=== PATIENT | female | born 1980 | race African-American/Black ===

== ENCOUNTER 2017-07-16 09:36 | Emergency (ER) | payer BC, MEDICAID, OTHER ==
--- NOTE | 2017-07-16 10:03 | ER Document Report ---
HPI - HPI Patient complains to provider of: dental pain Onset: Other - Several days Onset/Duration: Gradual Quality of pain: Achy, Throbbing Pain Level: Denies Context: 36-year-old female complaining of dental pain and swelling to the top right for several days. She went to an urgent care this morning the center to the emergency room because they wanted to make sure it was not into the soft tissue. Temperature was 100 and a pulse rate of 118 with blood pressure 173/ 112 (recently diagnosed and is dieting and exercising) she states some of the swelling is gone down since used a warm compress at work until the urgent care opened. Associated Symptoms: None Exacerbated by: Denies Relieved by: Denies - ROS ROS below otherwise negative: Yes Systems Reviewed and Negative: Yes All other systems reviewed and negative Past Medical History - General Information source: Patient - Social History Smoking Status: Never Smoker Frequency of alcohol use: None Drug Abuse: None Lives with: Family Family History: Reviewed & Not Pertinent - Medical History Notes: Obesity - Past Medical History Cardiac Medical History: Reports: Hx Hypertension - Recent diagnosis Surgical Hx: Negative Vertical Provider Document - CONSTITUTIONAL Agree With Documented VS: Yes Exam Limitations: No Limitations - INFECTION CONTROL TRAVEL OUTSIDE OF THE [place] IN LAST 30 DAYS: No - HEENT HEENT: Normocephalic. negative: Conjuctival Injection, Pharyngeal Erythema Notes: decay top right 2/3 molars, palpable abscess above the 2nd bicuspid - NECK Neck: Supple. negative: Lymphadenopathy-Left, Lymphadenopathy-Right - RESPIRATORY Respiratory: Breath Sounds Normal, No Respiratory Distress - CARDIOVASCULAR Cardiovascular: Regular Rate, Regular Rhythm - MUSCULOSKELETAL/EXTREMETIES Musculoskeletal/Extremeties: MAEW - NEURO Level of Consciousness: Awake, Alert - DERM Integumentary: Warm Course - Vital Signs Vital signs: Temp Pulse Resp BP Pulse Ox 100.0 F 121 H 16 173/112 H 98 07/16/17 09:40 07/16/17 09:40 07/16/17 09:40 07/16/17 09:40 07/16/17 09:40 Discharge - Discharge Clinical Impression: Dental abscess Condition: Good Disposition: HOME, SELF-CARE Instructions: Acetaminophen, Anti-Inflammatory Medication ([facility]), Clindamycin ( [facility]), Dental Infection or Abscess ([facility]) Additional Instructions: warm compress Return to the emergency room if worse Take the antibiotics as prescribed See the dentist as soon as possible Prescriptions: Ibuprofen [Motrin 800 mg Tablet] 800 mg PO Q8HP PRN #30 tablet PRN Reason: Clindamycin HCl [Cleocin 150 mg Capsule] 300 mg PO QID #56 capsule Referrals: DIAZ JACOB MD [Primary Care Provider] - Follow up as needed
[2017-07-16] MEDS ORDERED: ONDANSETRON 4 MG TAB.RAPDIS PO ONE (10:04)
[2017-07-16] MEDS ORDERED: CLINDAMYCIN HCL 150 MG CAPSULE PO ONE (10:04)
[2017-07-16] MEDS ORDERED: IBUPROFEN 800 MG TABLET PO ONE (10:04)
[2017-07-16] MEDS ORDERED: ACETAMINOPHEN 325 MG TABLET PO ONE (10:05)
[2017-07-16 10:30] VITALS: BP 145/102
== END 2017-07-16 10:35 | disposition home or self-care (01) ==
LOC: ER 09:36
DX: K04.7 Periapical abscess without sinus (principal); K08.89 Other specified disorders of teeth and supporting structures; R20.0 Anesthesia of skin; R50.9 Fever, unspecified; I10 Essential (primary) hypertension
CPT/HCPCS: 99283; S0119